=== PATIENT | female | born 1955 | race Caucasian/White ===

== ENCOUNTER 2020-04-13 09:32 | Outpatient (REF) | payer OTHER, SELFPAY ==
--- NOTE | ~2020-04-13 | MM_ITS ---
EXAMINATION: MM SCREENING DIGITAL BREAST TOMOSYNTHESIS, BILATERAL CLINICAL INFORMATION: Screening. Asymptomatic. The lifetime risk of breast cancer based on the Tyrer-Cuzick Model is 3.7%. COMPARISON: Mammography: April 08, 2019 and studies dating back to December 24, 2011 TECHNIQUE: Digital breast tomosynthesis is performed in both the craniocaudal and mediolateral oblique views along with computer-aided detection (CAD). Synthesized 2D images are generated from the tomosynthesis. FINDINGS: There are scattered areas of fibroglandular density (ACR BI-RADS breast composition Category b). There are no significant masses, abnormal calcifications, or other abnormalities. Region of question architectural distortion represents superimposition of fibroglandular tissue about the mid superior aspect of the left breast. MM/MM tomosynthesis screening BI IMPRESSION: There are no significant changes from prior study. ASSESSMENT: BI-RADS 1: Negative RECOMMENDATION: Routine annual mammography screening. This patient's information was entered into a reminder system with a target due date for their next mammogram.
== END 2020-04-13 09:33 | disposition home or self-care (01) ==
LOC: HO.MAMMO 09:32
PROVIDERS: Visit Provider Internal Medicine
DX: Z12.31 Encounter for screening mammogram for malignant neoplasm of breast (principal)
CPT/HCPCS: 77063; 77067

== ENCOUNTER 2021-05-11 13:32 | Outpatient (REF) | payer OTHER, SELFPAY ==
--- NOTE | ~2021-05-11 | MM_ITS ---
EXAMINATION: MM SCREENING DIGITAL BREAST TOMOSYNTHESIS, BILATERAL CLINICAL INFORMATION: Screening. Asymptomatic. The lifetime risk of breast cancer based on the Tyrer-Cuzick Model is 4%. COMPARISON: Mammography: 04/13/2020, 04/08/2019, 04/06/2018, 04/03/2017, 04/01/2016 TECHNIQUE: Digital breast tomosynthesis is performed in both the craniocaudal and mediolateral oblique views along with computer-aided detection (CAD). Synthesized 2D images are generated from the tomosynthesis. Additional left MLO x2 views are obtained. FINDINGS: There are scattered areas of fibroglandular density (ACR BI-RADS breast composition Category b). Breast tissue composition borders on predominantly fatty. Left breast has 0.7 cm nodule with ill-defined possibly mildly spiculated margins mid 12:00 position. Finding represents change from prior studies. Patient will be recalled for additional imaging. The remainder of the breast shows similar stromal and glandular markings. There are no abnormal calcifications. The axilla and skin contours are unremarkable. MM/MM tomosynthesis screening BI IMPRESSION: 1. Left: Nodule 0.7 cm with ill-defined margins mid 12:00 position. 2. Right: No mammographic evidence of malignancy. ASSESSMENT: BI-RADS 0: Incomplete - Need Additional Imaging Evaluation RECOMMENDATION: 1. Additional views of the left breast (spot CC, spot ML). 2. Targeted left breast ultrasound. 3. Radiology department staff will contact the patient for additional imaging. This patient's information was entered into a reminder system with a target due date for their next mammogram.
== END 2021-05-11 13:33 | disposition home or self-care (01) ==
LOC: HO.MAMMO 13:32
PROVIDERS: Visit Provider Internal Medicine
DX: Z12.31 Encounter for screening mammogram for malignant neoplasm of breast (principal)
CPT/HCPCS: 77063; 77067

== ENCOUNTER 2021-05-21 13:23 | Outpatient (REF) | payer OTHER, SELFPAY ==
--- NOTE | ~2021-05-21 | MM_ITS ---
EXAMINATION: MM DIAGNOSTIC DIGITAL BREAST TOMOSYNTHESIS, LEFT US DIAGNOSTIC ULTRASOUND BREAST, LEFT CLINICAL INFORMATION: Recall from screening for subcentimeter nodule with ill-defined possibly mildly spiculated margins mid 12:00 position, change from prior exams. COMPARISON: Mammography: 05/11/2021, 04/13/2020 TECHNIQUE: Digital breast tomosynthesis is performed. 2D images are generated from the tomosynthesis. The following views are obtained: Spot CC, spot ML. Ultrasound left breast is targeted to the superior breast. Additional imaging left axilla performed. Grayscale imaging and color Doppler are performed without and with harmonics. FINDINGS: The breasts are almost entirely fatty (ACR BI-RADS breast composition Category a). Additional views confirm a nodule with fine irregular margins 12:00 position corresponding to recent mammography. Ultrasound demonstrates hypoechoic nodule with fine irregular margins 12:00 position 8 cm from nipple measuring 0.6 cm. This corresponds to finding on mammography. There is no increased or decreased through transmission of sound. There is some scant peripheral color flow. Additional imaging left axilla demonstrates no adenopathy. Results are discussed with the patient and her daughter at time of visit using an cosmetic sales advisor. Ultrasound-guided core biopsy left breast nodule is recommended. MM/MM tomosynthesis added views L IMPRESSION: Nodule mid 12:00 position with fine irregular margins under 1 cm. No adenopathy demonstrated. ASSESSMENT: BI-RADS 4: Suspicious RECOMMENDATION: Ultrasound-guided core biopsy left breast. This patient's information was entered into a reminder system with a target due date for their next mammogram.
== END 2021-05-21 13:24 | disposition home or self-care (01) ==
LOC: HO.MAMMO 13:23
PROVIDERS: PCP Internal Medicine; Visit Provider Internal Medicine
DX: N63.25 Unspecified lump in the left breast, overlapping quadrants (principal)
CPT/HCPCS: 76642; 77061; 77065

== ENCOUNTER 2021-05-23 09:29 | Outpatient (REF) | payer OTHER, SELFPAY ==
--- NOTE | ~2021-05-23 | US_ITS ---
EXAMINATION: ULTRASOUND GUIDED CORE BIOPSY BREAST, LEFT POST PROCEDURE DIGITAL MAMMOGRAM, LEFT CLINICAL INFORMATION: Irregular hypoechoic subcentimeter nodule 12:00 left breast. COMPARISON: Mammography 05/21/2021, 05/11/2021, 04/13/2020, targeted left breast ultrasound 05/21/2021. FINDINGS: Proper informed consent is obtained from the patient after discussion of the procedure, potential risks and complications, and alternatives. Patient was given an opportunity for questions. The patient appeared to understand. The patient consented to the procedure and signed the consent form. Hospital provided freelance interpreter/translator assisted for consent and throughout the procedure. GUIDANCE: Ultrasound-guided; aseptic technique. LESION: Irregular hypoechoic nodule 12:00 left breast under 1 cm.. APPROACH: Lateral medial. ANESTHESIA: 15 mL carbonated 1% lidocaine. DERMATOTOMY: Single skin josue dermatotomy performed. NEEDLE: 14-gauge Achieve core biopsy device with 13.5-gauge co-axial guide needle. CORES: 6. CLIP: HydroMARK; shape: open coil. POST PROCEDURE UNILATERAL DIGITAL MAMMOGRAM: The post biopsy mammogram is performed in separate room using separate digital mammography equipment from the biopsy procedure. CC and ML views are obtained. There are scattered areas of fibroglandular density (breast composition category: b). The clip marker is in position. No gross three-dimensional hematoma. The patient tolerated the procedure well. No immediate complications. Home instructions reviewed with the patient. Final pathology results are pending. US/US breast ndl core biopsy LT IMPRESSION: 1. Status post ultrasound-guided core biopsy left breast. 2. Clip placed: HydroMARK; shape: open coil. 3. Pathology pending. An addendum report will be issued.
== END 2021-05-23 09:30 | disposition home or self-care (01) ==
LOC: HO.MAMMO 09:29
PROVIDERS: Visit Provider Internal Medicine
DX: N63.25 Unspecified lump in the left breast, overlapping quadrants (principal)
CPT/HCPCS: 19083; 77065; 88305; 88342; 88360; A4648

== ENCOUNTER 2021-06-20 09:01 | Outpatient (REF) | payer OTHER, SELFPAY ==
[2021-06-20 09:18] LABS: MANUAL DIFF FLAG NO
[2021-06-20 10:45] LABS: Basophils Percent Auto 0.6 % (0-2); Eosinophils Absolute Auto 0.1 X10*3/uL (0.0-0.4); Eosinophils Percent Auto 2.1 % (0-4); Hematocrit 33.7 % (37.0-47.0); Imm Gran Abs Auto 0.03 X10*3/uL (0.00-0.03); Imm Gran Pct Auto 0.4 % (0.0-0.4); Lymphocytes Absolute Auto 2.1 X10*3/uL (1.2-4.9); Lymphocytes Percent Auto 30.6 % (20-40); Mean Corpuscular HGB Conc 32.6 g/dl (31.0-35.0); Mean Corpuscular Hemoglobin 29.3 pg (27.0-33.0); Mean Corpuscular Volume 89.6 fL (80.0-98.0); Mean Platelet Volume 10.2 fL (9.4-12.3); Monocytes Absolute Auto 0.5 X10*3/uL (0.1-1.2); Monocytes Percent Auto 7.6 % (2-11); Neutrophils Absolute Auto 3.9 x10*3/uL (2.0-8.3); Neutrophils Percent Auto 58.7 % (45-73); Platelet Count 288 X10*3/uL (160-400); Red Blood Count 3.76 X10*6/uL (4.20-5.50); Red Cell Distribution Width 12.3 % (11.0-16.0); White Blood Count 6.7 X10*3/uL (4.8-10.8)
[2021-06-20 11:09] LABS: Alanine Aminotransferase 15 U/L (0-31); Albumin Level 3.9 g/dL (3.5-5.0); Alkaline Phosphatase 94 U/L (39-117); Anion Gap 11 (12-20); Aspartate Amino Transferase 16 U/L (5-31); Bilirubin Total 0.5 mg/dL (0.0-1.0); Blood Urea Nitrogen 16 mg/dL (9-16); Calcium 9.2 mg/dL (8.4-10.2); Carbon Dioxide 28 mmol/L (22-29); Chloride 103 mmol/L (96-108); Cholesterol 182 mg/dL; Estimated Glomerular Filt Rate 56; Glucose Random 184 mg/dL (60-115); HDL Cholesterol 41 mg/dL; LDL Cholesterol Calculated 111 mg/dl; Potassium 4.8 mmol/L (3.3-5.1); Sodium 137 mmol/L (135-145); Triglycerides 152 mg/dL
[2021-06-20 11:34] LABS: TSH reflex Free T4 2.48 uIU/mL (0.32-4.0); Vitamin D 25-OH Total 20.8 ng/mL (>30)
[2021-06-20 12:07] LABS: Creatinine Urine 127.02 mg/dL; Microalbum/Creatinine Ratio Ur 7.8 ug/mg cr
== END 2021-06-20 09:02 | disposition home or self-care (01) ==
LOC: HO.LAB 09:01
PROVIDERS: PCP Internal Medicine; Visit Provider Internal Medicine
DX: Z00.00 Encounter for general adult medical examination without abnormal findings (principal); E78.2 Mixed hyperlipidemia; I10 Essential (primary) hypertension; E11.65 Type 2 diabetes mellitus with hyperglycemia; E55.9 Vitamin D deficiency, unspecified; R53.83 Other fatigue
CPT/HCPCS: 36415; 80053; 80061; 82043; 82306; 84443; 85025

== ENCOUNTER 2022-05-20 12:41 | Outpatient (REF) | payer OTHER, SELFPAY ==
--- NOTE | ~2022-05-20 | MM_ITS ---
EXAMINATION: MM DIAGNOSTIC DIGITAL BREAST TOMOSYNTHESIS, BILATERAL CLINICAL INFORMATION: Left breast IDC status post lumpectomy 2021. COMPARISON: Mammography: Multiple prior studies, most recent 05/23/2021. TECHNIQUE: Digital breast tomosynthesis is performed in both the craniocaudal and mediolateral oblique views along with computer-aided detection (CAD). Synthesized 2D images are generated from the tomosynthesis. Additional views are obtained: Right MLO, magnification left CC, magnification left ML. FINDINGS: There are scattered areas of fibroglandular density (ACR BI-RADS breast composition Category b). There are post therapy changes on the left with mild reduced breast size, minor scarring, and surgical clips consistent with the lumpectomy and sentinel node. There are some benign rim calcifications around small oil cysts in the lumpectomy site. Right breast is unremarkable. There is no mass or architectural abnormality or abnormal calcifications. The axilla are unremarkable. Results are provided to the patient at time of visit by the technologist. MM/MM tomosynthesis diagnostic BI IMPRESSION: -No mammographic evidence of malignancy. -Post therapy changes left breast. ASSESSMENT: BI-RADS 2: Benign RECOMMENDATION: Annual bilateral mammography. This patient's information was entered into a reminder system with a target due date for their next mammogram.
== END 2022-05-20 12:42 | disposition home or self-care (01) ==
LOC: HO.MAMMO 12:41
PROVIDERS: Visit Provider Internal Medicine
DX: Z85.3 Personal history of malignant neoplasm of breast (principal)
CPT/HCPCS: 77062; 77066

== ENCOUNTER 2023-04-22 02:38 | Emergency (ER) | payer OTHER, SELFPAY ==
--- NOTE | ~2023-04-22 | CT_ITS ---
Examination: CTA chest and CT abdomen pelvis with IV contrast. Clinical indications: Right-sided chest pain. Right upper quadrant pain after fall. COMPARISON: Chest x-ray 04/22/2023 CT abdomen pelvis 09/22/2018. TECHNIQUE: 5 mm thin axial and reformatted 3 mm thin sagittal, coronal and 8 mm thin oblique coronal images of chest were obtained following rapid IV administration of 85 mL Omnipaque 350. Subsequently 5 mm thin axial and reformatted 3 mm thin sagittal and coronal images of abdomen pelvis were obtained following IV contrast. DLP [id number]. This CT examination was performed using dose optimization technique as appropriate, variously including the following: Automated exposure control Adjustment of MA and/or KV according to patient size(this includes techniques or standardized protocols for targeted exams where dose is matched to indication/reason for exam; extremities or head. Use of iterative reconstruction techniques. FINDINGS: Chest: MEDIASTINUM: There is good opacification of pulmonary artery and is branches without any intraluminal filling defect or narrowing. The thoracic aorta is of normal caliber without aneurysm or dissection. Heart size is normal. No pericardial effusion seen. No abnormal size mediastinal or hilar lymph nodes seen. Thyroid lobes are partially visualized and appear normal caliber. There is a small hiatal hernia. LUNGS: The lungs are well-expanded and clear of acute pneumonic process. There are no pulmonary nodules, mass or consolidation. PLEURA: There is no pleural effusion or thickening. AXILLA: There is no abnormal size lymph nodes. The chest wall is unremarkable. Osseous structures: No aggressive lytic or sclerotic process seen. Abdomen and pelvis: LIVER, DUCTS AND GALLBLADDER: The liver is normal size, contour and density. No focal lesion seen. There is no intrahepatic ductal dilatation. There are multiple radiopaque gallstones without wall thickening. Spleen: Unremarkable. Pancreas: Unremarkable. Adrenal glands: Unremarkable. Kidneys and ureters: Bilateral kidney nephrograms are symmetrical and normal. There are multiple bilateral nonenhancing renal cysts largest in the upper pole right kidney measures 4 cm. No radiopaque renal calculi or hydronephrosis seen. Lymphovascular structures: The abdominal aorta is normal caliber. No retroperitoneal lymphadenopathy seen. GI tract: There is scattered stool seen throughout the colon without significant distention. The small bowel loops are normal caliber. Appendix is not visualized. Abdominal wall: There is no evidence of hernia. Pelvis: The bladder is nondistended the uterus is atrophied or surgically absent. There is no free fluid. No adnexal mass noted. No abnormal inguinal or pelvic lymphadenopathy. Osseous structures: No aggressive lytic or sclerotic process seen. CT/CT abdomen pelvis w IV con IMPRESSION: No evidence of PE. No evidence aortic dissection or aneurysm. Lungs are clear. Mild constipation. Normal appendix. No bowel obstruction seen. Graph Cholelithiasis without wall thickening. Bilateral renal cysts
--- NOTE | ~2023-04-22 | XR_ITS ---
EXAMINATION: XR CHEST CLINICAL INFORMATION: Fall. COMPARISON: 12/15/2018. TECHNIQUE: 2 views of the chest were obtained. FINDINGS: No significant abnormality is noted involving the heart, lungs, mediastinum, bony thorax or soft tissues. XR/XR chest 2V IMPRESSION: Unremarkable examination.
[2023-04-22 02:45] VITALS: BP 147/63; PULSE 74; RESP 18; TEMP 36.6; O2SAT 97; BMI 28.7
[2023-04-22 06:08] VITALS: BP 161/77; PULSE 69; RESP 12; TEMP 36.7; O2SAT 97
--- NOTE | 2023-04-22 07:29 | ECG_ITS ---
Test Reason : FALL Blood Pressure : / mmHG Vent. Rate : 069 BPM Atrial Rate : 069 BPM P-R Int : 184 ms QRS Dur : 076 ms QT Int : 374 ms P-R-T Axes : 052 000 060 degrees QTc Int : 400 ms Normal sinus rhythm Normal ECG When compared with ECG of 04-NOV-2018 06:52, No significant change was found Referred By: Carolina Wu Electronically Signed By:Herminio Malik
--- NOTE | 2023-04-22 07:30 | ED_ITS ---
HPI - Fall General Chief Complaint: Fall Stated Complaint: fall Time Seen by Provider: 04/22/23 07:00 History of Present Illness HPI Narrative: Patient is a 67-year-old female with a history of accidental fall last . She also has a history of breast cancer last year. Previous history of diverticulitis. Presented today with having right lower ribs since the fall. The pain is worse with deep breath. There has no fever no chills. No diaphoresis. Has not improved since last . Related Data Allergies Allergy/AdvReac Type Severity Reaction Status Date / Time No Known Allergies Allergy Unknown UNKNOWN Verified 04/22/23 02:45 [NO KNOWN ALLERGIES] Review of Systems 2 Review of Systems: Positive pain to the right chest Yes all other systems are reviewed and are negative [facility] Past Medical History Attestation statement: The following information was validated with the patient. Social History Social History Smoked in Last 30 Days: No Use of substances other than those prescribed or required for medical reasons: No Advance Directives: No Advance Directives Information Provided: Yes Physical Exam 2 Vital Signs: Vital Signs: Last Vital Signs Temp 98.0 F 04/22/23 06:08 Pulse 70 04/22/23 11:41 Resp 18 04/22/23 11:41 BP 145/76 H 04/22/23 11:41 Pulse Ox 96 04/22/23 11:41 O2 Del Method Room Air 04/22/23 11:41 BMI result Body Mass Index 28.7 Appearance: Alert. Oriented X3. No acute distress. Eyes: Pupils equal, round and reactive to light. ENT: Pharynx normal. Neck: Normal inspection. Neck supple. No lymph nodes noted. No crepitus CVS: Normal heart rate and rhythm. Pulses normal. Normal S1 and S2 Respiratory: No respiratory distress. Breath sounds normal. No Wheezing. No rales. No crepitus on palpation Abdomen: Soft and nontender. No rigidity. No distention. good BS x4 Skin: Skin warm and dry. Normal skin color. Normal skin turgor. Extremities: No lower extremity edema. Neurovascular intact to all extremities. No Lacerations. No Rash Neuro: Oriented X 3. No motor deficit. No sensory deficit. Moving all extermities. No slurred speech Medications Administered Discontinued Medications Generic Name Dose Route Start Last Admin Trade Name Emily PRN Reason Stop Dose Admin Iohexol 100 ml 04/22/23 08:55 04/22/23 08:57 Iohexol 350 Mg/Ml 100 Ml Infus..Btl IV 04/22/23 08:56 Not Given ONCE ONE Iohexol 85 ml 04/22/23 08:58 04/22/23 08:58 Iohexol 350 Mg/Ml 100 Ml Infus..Btl IV 04/22/23 08:59 85 ml ONCE ONE Administration Medical Decision Making Medical Decision Making [facility] Narrative: Patient has chest pain worse with deep breath since last when she fell. CTA of the chest was done. My interpretation CTA showed no acute rib fracture. No PE. No dissection. I reviewed radiology's reading. Patient's CT of the abdomen showed no acute traumatic injury no obstruction no abscess no perforation. Two sets of cardiac enzymes was done as patient has chest pain over the right lower rib. The pain is atypical for ACS. Patient's EKG showed a sinus rhythm heart rate is 70 RI QRS QTC within normal limits there has no acute ST segment elevation. In the setting of atypical history negative troponin x2 sat normal EKG felt patient's risk for ACS to be exceptionally low. Follow-up on an outpatient basis. In stable condition. Differential Diagnosis Differential Diagnoses: The differential diagnosis associated with the presentation includes Rib fracture, pneumothorax, pulmonary emboli, intra-abdominal bleeding, Admission/Observation Consideration of admission/observation: Escalation of care including admission/observation considered Symptom improved will discharge patient home Lab Data [facility] Lab Attestation statement: I reviewed the patient's lab results. 04/22/23 07:54 04/22/23 07:54 Labs: Lab Results 04/22/23 04/22/23 Range/Units 07:54 10:18 WBC 7.3 (4.8-10.8) X10*3/uL RBC 3.63 L (4.20-5.50) X10*6/uL Hgb 11.1 L (12.0-16.0) g/dl Hct 32.2 L (37.0-47.0) % MCV 88.7 (80.0-98.0) fL MCH 30.6 (27.0-33.0) pg MCHC 34.5 (31.0-35.0) g/dl RDW 11.8 (11.0-16.0) % Plt Count 278 (160-400) X10*3/uL MPV 9.6 (9.4-12.3) fL Immature Gran % (Auto) 0.4 (0.0-0.4) % Neut % (Auto) 70.4 (45-73) % Lymph % (Auto) 21.6 (20-40) % [place] % (Auto) 5.9 (2-11) % Eos % (Auto) 1.2 (0-4) % Baso % (Auto) 0.5 (0-2) % Lymph # (Auto) 1.6 (1.2-4.9) X10*3/uL [place] # (Auto) 0.4 (0.1-1.2) X10*3/uL Eos # (Auto) 0.1 (0.0-0.4) X10*3/uL Baso # (Auto) 0.0 (0.0-0.2) X10*3/uL Abs Immat Gran (auto) 0.03 (0.00-0.03) X10*3/uL Absolute Neuts (auto) 5.2 (2.0-8.3) x10*3/uL Absolute Nucleated RBC 0.000 (0.0-0.012) X10*3/uL Nucleated RBC % (auto) 0.0 (0.0-0.2) /100WBC Sodium 138 (135-145) mmol/L Potassium 5.2 H (3.3-5.1) mmol/L Chloride 106 (96-108) mmol/L Carbon Dioxide 24 (22-29) mmol/L Anion Gap 13 (12-20) BUN 21 H (9-16) mg/dL Creatinine 1.04 (0.5-1.4) mg/dL Estim Creat Clear Calc 48.5 Estimated GFR 53 Random Glucose 151 H (60-115) mg/dL Calcium 9.3 (8.4-10.2) mg/dL Total Bilirubin 0.3 (0.0-1.0) mg/dL Direct Bilirubin 0.1 (0.0-0.5) mg/dL AST 26 (5-31) U/L ALT 24 (0-31) U/L Alkaline Phosphatase 106 (39-117) U/L Troponin I High Sens < 2.7 < 2.7 (<3.5-17.0) ng/L Total Protein 7.6 (6.5-8.0) g/dL Albumin 4.0 (3.5-5.0) g/dL Lipase 53 (8-78) U/L Independent Interpretation I performed an independent interpretation of an: EKG (Sinus pattern heart rate is 70 RI QRS QTC within normal limits is no acute ST segment elevation noted.) and CT Scan (CT scan of the chest abdomen pelvis was reviewed. No acute finding) Radiology Impression Discussion of test interpretation with radiology: I have reviewed the radiologist's reading. Independent Historian Clinical information obtained from an independent historian. History obtained from or confirmed by: Spouse Discharge Plan Discharge Clinical Impression: Chest wall pain Patient Disposition: Home, Self-Care Instructions: Chest Pain (ED) Referrals: Corwin Lopez MD [Primary Care Provider] - 04/24/23 Print Language: Danish
[2023-04-22 08:04] LABS: MANUAL DIFF FLAG NO
[2023-04-22 08:11] LABS: Basophils Percent Auto 0.5 % (0-2); Eosinophils Absolute Auto 0.1 X10*3/uL (0.0-0.4); Eosinophils Percent Auto 1.2 % (0-4); Hematocrit 32.2 % (37.0-47.0); Hemoglobin 11.1 g/dl (12.0-16.0); Imm Gran Abs Auto 0.03 X10*3/uL (0.00-0.03); Imm Gran Pct Auto 0.4 % (0.0-0.4); Lymphocytes Absolute Auto 1.6 X10*3/uL (1.2-4.9); Lymphocytes Percent Auto 21.6 % (20-40); Mean Corpuscular HGB Conc 34.5 g/dl (31.0-35.0); Mean Corpuscular Hemoglobin 30.6 pg (27.0-33.0); Mean Corpuscular Volume 88.7 fL (80.0-98.0); Mean Platelet Volume 9.6 fL (9.4-12.3); Monocytes Absolute Auto 0.4 X10*3/uL (0.1-1.2); Monocytes Percent Auto 5.9 % (2-11); Neutrophils Absolute Auto 5.2 x10*3/uL (2.0-8.3); Neutrophils Percent Auto 70.4 % (45-73); Platelet Count 278 X10*3/uL (160-400); Red Blood Count 3.63 X10*6/uL (4.20-5.50); Red Cell Distribution Width 11.8 % (11.0-16.0); White Blood Count 7.3 X10*3/uL (4.8-10.8)
[2023-04-22 08:24] LABS: Alanine Aminotransferase 24 U/L (0-31); Alkaline Phosphatase 106 U/L (39-117); Anion Gap 13 (12-20); Aspartate Amino Transferase 26 U/L (5-31); Bilirubin Direct 0.1 mg/dL (0.0-0.5); Bilirubin Total 0.3 mg/dL (0.0-1.0); Blood Urea Nitrogen 21 mg/dL (9-16); Calcium 9.3 mg/dL (8.4-10.2); Carbon Dioxide 24 mmol/L (22-29); Chloride 106 mmol/L (96-108); Creatinine Clr Calc Pharmacy 48.5; Estimated Glomerular Filt Rate 53; Glucose Random 151 mg/dL (60-115); Lipase 53 U/L (8-78); Potassium 5.2 mmol/L (3.3-5.1); Sodium 138 mmol/L (135-145); Total Protein 7.6 g/dL (6.5-8.0)
[2023-04-22 08:34] LABS: Troponin-I High Sensitivity < 2.7 ng/L (<3.5-17.0)
[2023-04-22] MEDS: iohexoL 350 MG/ML 100 ML INFUS..BTL 85 ML IV (08:58)
[2023-04-22 10:55] LABS: Troponin-I High Sensitivity < 2.7 ng/L (<3.5-17.0)
[2023-04-22 11:41] VITALS: BP 145/76; PULSE 70; RESP 18; O2SAT 96
== END 2023-04-22 12:51 | disposition home or self-care (01) ==
PROVIDERS: Emergency Provider Emergency Medicine Emergency Medical Services; PCP Internal Medicine
DX: R07.89 Other chest pain (principal); R10.2 Pelvic and perineal pain; Z79.899 Other long term (current) drug therapy
CPT/HCPCS: 36415; 71046; 71275; 74177; 80048; 80076; 83690; 84484; 85025; 93005; 99284; Q9967

== ENCOUNTER → 2023-04-22 07:29 | Outpatient (BNV) | payer OTHER, SELFPAY | PROVIDERS: Emergency Provider Emergency Medicine Emergency Medical Services; PCP Internal Medicine; Visit Provider Internal Medicine Cardiovascular Disease | DX: R07.9 Chest pain, unspecified (principal) | CPT/HCPCS: 93010 ==

== ENCOUNTER 2023-05-23 12:45 | Outpatient (REF) | payer OTHER, SELFPAY ==
--- NOTE | ~2023-05-23 | MM_ITS ---
EXAMINATION: MM DIAGNOSTIC DIGITAL BREAST TOMOSYNTHESIS, BILATERAL CLINICAL INFORMATION: Year 2 follow-up left IDC 12:00 axis left breast, middle one third status post lumpectomy, radiation 2021. Patient also due for bilateral screening. COMPARISON: Mammography: 05/20/2022, 05/11/2021, 04/13/2020, 04/08/2019, and exams dating back to 2018. TECHNIQUE: Digital breast tomosynthesis is performed in both the craniocaudal and mediolateral oblique views along with computer-aided detection (CAD). Synthesized 2D images are generated from the tomosynthesis. In addition, spot magnification views of the lumpectomy site 12:00 left breast were also obtained in the CC and ML projections. FINDINGS: There are scattered areas of fibroglandular density (ACR BI-RADS breast composition Category b). There are stable post therapy and surgical changes in the left breast with slightly reduced breast size, scarring with fat necrosis, scarring, and surgical clips in the 12:00 axis of the left breast, mild stromal prominence, and scarring along the axillary fold. There is no evidence of disease recurrence on these images. Within the right breast there is no mass, suspicious calcification, or architectural distortion. There is no axillary abnormalities. MM/MM tomosynthesis diagnostic BI IMPRESSION: There are no significant changes from prior study. Stable post therapy changes left breast, benign. No findings suspicious for malignancy in either breast. Recommend continuing post operative protocol in one year for year 3 post surgery. ASSESSMENT: BI-RADS BI-RADS 2 - Benign Findings RECOMMENDATION: 1 year F/U Results were provided to the patient at time of visit by the technologist. This patient's information was entered into a reminder system with a target due date for their next mammogram.
== END 2023-05-23 12:46 | disposition home or self-care (01) ==
LOC: HO.MAMMO 12:45
PROVIDERS: PCP Internal Medicine; Visit Provider Internal Medicine
DX: Z85.3 Personal history of malignant neoplasm of breast (principal)
CPT/HCPCS: 77062; 77066

== ENCOUNTER → 2023-05-23 13:00 | Outpatient (BNV) | payer OTHER, SELFPAY | PROVIDERS: PCP Internal Medicine; Visit Provider Radiology Diagnostic Radiology | DX: R92.8 Other abnormal and inconclusive findings on diagnostic imaging of breast (principal) | CPT/HCPCS: 77066; G0279 ==

== ENCOUNTER 2024-01-01 10:37 | Outpatient (REF) | payer OTHER, SELFPAY | END 2024-01-01 10:38 | disposition home or self-care (01) | LOC: HO.XRAY 10:37 | PROVIDERS: PCP Internal Medicine; Visit Provider Internal Medicine | DX: M25.511 Pain in right shoulder (principal) | CPT/HCPCS: 73030 ==